=== PATIENT | male | born 1955 | race Asian ===

== ENCOUNTER 2017-10-07 21:42 | Emergency (ER) | payer OTHER ==
[~2017-10-07] VITALS: Ht 162.6 cm; Wt 90.0 kg
[2017-10-07] MEDS ORDERED: LEVO88TA4 PO (21:57)
[2017-10-07] MEDS ORDERED: TERA2 PO (21:57)
[2017-10-07] MEDS ORDERED: AMLO-511 PO (21:57)
[2017-10-07] MEDS ORDERED: FentaNYL CITRATE-PF 100 MCG/2 ML VIAL IM ONE (22:30)
[2017-10-07 22:47] LABS: APPEARANCE,URINE CLOUDY (CLEAR); BILIRUBIN,URINE NEGATIVE (NEGATIVE); GLUCOSE, URINE (UA) NEGATIVE (NEGATIVE); KETONES,URINE NEGATIVE (NEGATIVE); LEUKOCYTE ESTERASE ,URINE MODERATE (NEGATIVE); NITRATE,URINE NEGATIVE (NEGATIVE); OCCULT BLOOD,URINE LARGE (NEGATIVE); PH,URINE 6.5 (5.0-8.0); PROTEIN,URINE SEE CONFIRM (NEGATIVE); UROBILINOGEN,URINE 0.2 mg/dL (<=1.0)
[2017-10-07 23:12] VITALS: BP 139/88
[2017-10-07 23:40] LABS: BACTERIA,URINE Few /HPF (None Seen); RBC,URINE 26-50 /HPF (0-2)
[2017-10-07 23:41] LABS: SULFOSALICYLIC ACID,URINE 2+ (Negative); YEAST,URINE Rare /HPF (None Seen)
== END 2017-10-08 | disposition home or self-care (01) ==
LOC: EMS 21:43
DX: T83.9XXA Unspecified complication of genitourinary prosthetic device, implant and graft, initial encounter (principal); I10 Essential (primary) hypertension; E03.9 Hypothyroidism, unspecified; F17.210 Nicotine dependence, cigarettes, uncomplicated
CPT/HCPCS: 81001; 87086; 96372; 99284; J3010